=== PATIENT | female | born 1935 | race Caucasian/White ===

== ENCOUNTER 2018-12-08 17:14 | Inpatient (IN) | payer MEDICARE, BC ==
[2018-12-08 17:58] LABS: Clarity Clear (Clear)
[2018-12-08 17:59] LABS: Leukocyte Small (Negative); Nitrite Negative (Negative)
[2018-12-08 18:00] LABS: Bilirubin Negative (Negative); Blood, Urine Trace (Negative); Glucose, Urine (Dipstick) Negative (Negative); Protein, Urine (Dipstick) > or equal to 300 mg/dL (Neg-Trace); Urobilinogen 0.2 mg/dL (0.2-1.0)
[2018-12-08 18:03] LABS: #Basophils 0.1 thou/uL (0.0-0.2); #Eosinphils 0.2 thou/uL (0.0-0.7); #Lymphocytes 2.2 thou/uL (1.20-3.40); #Monocytes 0.8 thou/uL (0.11-0.59); #Neutrophils 9.7 thou/uL (1.40-6.50); %Basophils 0.8 % (0.0-1.0); %Eosinophils 1.2 % (0.0-10.0); %Lymphocytes 17.1 % (21.0-51.0); %Monocytes 6.2 % (0.0-10.0); %Neutrophils 74.7 % (42.0-75.0); Hemoglobin 11.2 g/dL (12.0-16.0); Mean Corpuscular HGB CONC 32.3 g/dL (32.0-36.0); Mean Corpuscular Hemoglobin 28.9 pg (27.0-31.0); Mean Corpuscular Volume 89.3 fL (78.0-98.0); Mean Platelet Volume 6.7 fL (7.4-10.4); Platelet Count 504 thou/uL (130-400); RBC Distribution Width 15.4 % (11.5-14.5); Red Blood Cell (RBC) Count 3.88 mill/uL (4.20-5.40)
[2018-12-08 18:07] LABS: Bacteria/HPF 1+ HPF (None Seen); Crystals/HPF None Seen HPF (Negative); Hyaline Casts/LPF NONE SEEN LPF (0-3 Hyaline); Oval Fat Bodies/HPF None Seen HPF (None Seen); RBC/HPF 0-3 HPF (0-3); Renal Epithelial None Seen HPF (0-3); Sperm/HPF None Seen HPF (None Seen); Squamous Epithelial None Seen HPF (0-3); Transitional Epithelial NONE SEEN HPF (0-3); Trichomonas/HPF None Seen HPF (None Seen); WBC/HPF 21-50 HPF (0-3); Yeast-All Forms None Seen HPF (None Seen)
[2018-12-08 18:08] LABS: Other Casts/LPF 7-10 FINELY GRAN LPF (0-3 Hyaline)
[2018-12-08 18:14] LABS: ALT (SGPT) 12 U/L (8-55); AST (SGOT) 11 U/L (5-34); Albumin 4.5 g/dL (3.4-4.8); Alkaline Phosphatase 51 U/L (40-150); Anion Gap 18 mmol/L (10-20); BUN (Urea Nitrogen) 20 mg/dL (9.8-20.1); Bilirubin, Total 0.4 mg/dL (0.2-1.2); CK (CPK) 49 U/L (29-168); Calc. Creatinine Clearance 0 mL/min (70-130); Carbon Dioxide 25 mmol/L (23-31); Chloride 101 mmol/L (98-107); Estimated GFR-MDRD 22; Globulin 2.7 g/dL (2.4-3.5); Glucose 140 mg/dL (83-110); Potassium 4.6 mmol/L (3.5-5.1); Protein, Total 7.2 g/dL (6.0-8.3); Sodium 139 mmol/L (136-145)
[2018-12-08] MEDS ORDERED: cefTRIAXone\\ROCEPHIN 2 GM VIAL ONE (18:26)
[2018-12-08] MEDS ORDERED: Sodium Chloride 0.9% 100 ML ONE (18:26)
[2018-12-08 20:15] VITALS: BMI 18.5
[2018-12-08] MEDS ORDERED: Ondansetron PF 4 MG/2 ML Vial IVP PRN (20:39)
[2018-12-08] MEDS ORDERED: Ondansetron ODT 4 MG TAB SL PRN (20:39)
[2018-12-08] MEDS ORDERED: Acetaminophen 325 MG TAB PO PRN (20:39)
[2018-12-08] MEDS: Sodium Chloride 0.9% 1,000 ML IV SCH (20:55)
[2018-12-08 23:43] LABS: Lactic Acid 2.4 mmol/L (0.5-2.2)
[2018-12-09] MEDS: Sodium Chloride 0.9% 1,000 ML IV SCH ×2 (00:29→08:37)
[2018-12-09 04:46] LABS: ALT (SGPT) 9 U/L (8-55); AST (SGOT) 10 U/L (5-34); Albumin 3.6 g/dL (3.4-4.8); Alkaline Phosphatase 41 U/L (40-150); Anion Gap 14 mmol/L (10-20); BUN (Urea Nitrogen) 17 mg/dL (9.8-20.1); Bilirubin, Total 0.2 mg/dL (0.2-1.2); Calc. Creatinine Clearance 19 mL/min (70-130); Calcium 8.6 mg/dL (7.8-10.44); Carbon Dioxide 20 mmol/L (23-31); Chloride 110 mmol/L (98-107); Estimated GFR-MDRD 29; Globulin 2.1 g/dL (2.4-3.5); Glucose 95 mg/dL (83-110); Potassium 4.3 mmol/L (3.5-5.1); Protein, Total 5.7 g/dL (6.0-8.3); Sodium 140 mmol/L (136-145)
[2018-12-09 05:15] LABS: Anisocytosis SLIGHT = 6-15 cells (100X) (0-5/hpf); Band 3 % (5-11); Hemoglobin 9.6 g/dL (12.0-16.0); Lymphocytes 12 % (21-51); MDiff Complete? YES; Mean Corpuscular HGB CONC 33.7 g/dL (32.0-36.0); Mean Corpuscular Hemoglobin 29.7 pg (27.0-31.0); Mean Corpuscular Volume 88.2 fL (78.0-98.0); Mean Platelet Volume 8.3 fL (7.4-10.4); Monocytes 7 % (0-10); Neutrophil 77 % (42-75); Ovalocytes SLIGHT = 2-5 cells (100X) (0-1/hpf); Platelet Count 410 thou/uL (130-400); Platelet Morphology Comment Appears Increased; RBC Distribution Width 15.1 % (11.5-14.5); Red Blood Cell (RBC) Count 3.23 mill/uL (4.20-5.40); Toxic Granulation SLIGHT
[2018-12-09] MEDS: Rosuvastatin 10 MG TAB PO SCH (08:44)
[2018-12-09] MEDS: Lisinopril 10 MG TAB PO SCH (08:45)
[2018-12-09] MEDS: Amlodipine 5 MG TAB PO SCH (08:45)
[2018-12-09] MEDS: Aspirin 81 mg Enteric Coated Tablet PO SCH (08:45)
[2018-12-09] MEDS ORDERED: Alogliptin 6.25 MG TAB PO SCH (09:00)
[2018-12-09] MEDS ORDERED: Glimepiride 2 MG TAB PO SCH (11:00)
[2018-12-09] MEDS: cefTRIAXone\\ROCEPHIN 2 GM in Sodium Chloride 0.9% 100 ML IVPB SCH (17:16)
[2018-12-09] MEDS ORDERED: Dextrose 5% in Water 1,000 ML IV PRN (17:34)
[2018-12-09] MEDS ORDERED: HumaLOG 300 UNITS/3 ML VIAL SC PRN (17:34)
[2018-12-09] MEDS ORDERED: Dextrose 50% Abboject 50 ML SYRINGE SLOW IVP PRN (17:34)
--- NOTE | 2018-12-09 18:34 | RAD ---
CHEST TWO VIEWS: 12/09/18 The heart is normal in size and the lungs are clear. There is no sign of pneumonia or other cause for infection or increased white count. No effusions are seen. IMPRESSION: No acute finding. POS: HOME
[2018-12-09] MEDS: HumaLOG 300 UNITS/3 ML VIAL SC PRN (19:11)
[2018-12-09] MEDS ORDERED: Vancomycin HCl 1 GM in Sodium Chloride 0.9% 250 ML 250 ML IVPB SCH (20:00)
[2018-12-09 20:26] LABS: Vancomycin, Random 9.4 ug/mL (See Comment)
[2018-12-09] MEDS ORDERED: Vancomycin HCl 750 MG in Sodium Chloride 0.9% 250 ML 250 ML IVPB SCH (22:00)
--- NOTE | 2018-12-09 22:17 | CT ---
CT ABDOMEN AND PELVIS WITHOUT CONTRAST: 12/09/[address] of the abdomen and pelvis was performed for evaluation of an increased white count. Axial s lices were acquired, then coronal and sagittal reconstructions were done. A fair amount of the lower chest was shown on this study and the lungs are clear. There is no infiltr ate or effusions present. The liver, spleen, pancreas and abdominal aorta showed no acute findings wi thin the limitations of a noncontrast scan. There is abundant arteriosclerotic change in the aorta. M ultiple gallstones are seen in the gallbladder, ; however, there does not appear to be wall thickeni ng or inflammatory change around it. There has been a prior left nephrectomy. Right kidney shows no h ydronephrosis. A 2 cm predominantly fat filled mass is seen in the upper pole of the right kidney. 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 There is a small amount of perine phric streaking around the lower pole, but this is a nonspecific finding can often be seen in patient 's with prior pyelonephritis. The kidney itself does not appear edematous. The bowel shows no distention, wall thickening, or kristina-intestinal inflammatory change. No mesenteric adenopathy was seen. A minimal fat filled periumbilical hernia is noted, of no consequence. CT of th e pelvis showed no pelvic masses, fluid collections, or inflammatory changes. No masses were seen. Degenerative changes are seen in the spine, though they are not excessive. Degenerated discs are evid ent at L2-L3 and L4-L5. IMPRESSION: 1. No evidence of intra-abdominal or pelvic abscess or other fluid collections to explain the pa sukhwinder's increased white count. 2. Minimal right perinephric streaking which is a fairly nonspecific finding and is not necessar alayna indicative of current infection. 3. Gallstones but no pericholecystic inflammatory change seen. 4. 2 cm fat filled mass upper pole right kidney. Almost certainly a benign angiomyolipoma. Furth er workup is probably not indicated. POS: HOME
--- NOTE | 2018-12-10 01:25 | HP ---
PRIMARY CARE PHYSICIAN: [facility] in [place], [place]. CHIEF COMPLAINT: Abnormal kidney function and possible UTI. HISTORY OF PRESENT ILLNESS: Ms. Gallegos is an 83-year-old female with diabetes mellitus, hypertension, hyperlipidemia, and history of left renal cell carcinoma, status post nephrectomy, presented to emergency room on 2018 due to abnormal kidney function and possible UTI. Her condition started after her nephrectomy on October [address] Osvaldo Ryan. She has been experiencing intermittent nausea, vomiting, with loss of appetite and generally not feeling well. She recently transferred care to [facility] in [place] after patient's PCP closed their practice in [place]. She was advised to go to the hospital for possible UTI and worsening kidney function. She denies any pain on presentation. Her vital signs at ED showed BP of 147/80, pulse 91, RR of 16, temperature of 97.6, O2 sat was 99% Her labs showed WBC of 13, hemoglobin of 11.2, hematocrit of 34.7, platelets counts of 504. Comprehensive metabolic panel showed sodium of 139, potassium of 4.6, creatinine of 2.11, BUN of 20, glucose of 140. Her urine showed proteinuria of more than 300 mg/dL with small leukocyte esterase, wbc of 21 to 50 with +1 bacteria. Lactic acid was elevated at 3.4. We do not have a baseline labs for comparison. Due to her abnormal kidney function and elevated white count with abnormal urinalysis, the patient was admitted for UTI with sepsis. She was started on vancomycin and Rocephin. This afternoon, she denies any major complaints except for frequent urination. Her appetite is the same. She is able to ambulate to go to the bathroom. Vital signs and Accu-Cheks are within normal limits. PAST MEDICAL HISTORY: 1. Diabetes mellitus. 2. Hypertension. 3. Hyperlipidemia. 4. History of left renal cell carcinoma. PAST SURGICAL HISTORY: 1. Bilateral cataract surgery. 2. Left nephrectomy. PERSONAL SOCIAL HISTORY: The patient lives with . Has a daughter and son; both live in [facility]. ALLERGIES: CIPRO AND JANUVIA. MEDICATIONS: 1. Crestor 40 mg one tablet daily. 2. Metformin 500 mg two tablets b.i.d. 3. Amlodipine 5 mg once a day. 4. Lisinopril 10 mg daily. 5. Glimepiride 2 mg daily. 6. Aspirin 81 mg daily. FAMILY HISTORY: Father of heart disease with complications. Mother had diabetes and at 65 years old due to complications. REVIEW OF SYSTEMS: GENERAL: Positive for fatigue. Positive for decreased appetite. Positive for weight loss of 10 pounds. EYES: Positive for blurred vision. Negative for eye pain. EARS, NOSE, THROAT: No sore throat. No nasal congestion. CARDIOVASCULAR: Negative for chest pain. Negative for palpitation. Negative for edema. PULMONARY: Negative for shortness of breath. Negative for wheezing. Negative for tobacco exposure. GASTROINTESTINAL: Positive for nausea and vomiting. Negative for constipation or diarrhea. Positive for loss of appetite. MUSCULOSKELETAL: Negative for joint pains or swelling. PSYCHIATRIC: Negative for anxiety, depression. LYMPHATICS: No swollen lymph nodes or bruising. PHYSICAL EXAMINATION: VITAL SIGNS: Blood pressure of 135/69, temperature of 98.2, pulse of 69, respiratory rate of 16, O2 saturation 95% on room air. GENERAL: The patient is alert, oriented, not in respiratory distress. HEENT: Normocephalic and atraumatic. Pupils are equally reactive to light. NECK: Supple. Negative for lymphadenopathy. Negative for JVD. CHEST AND LUNGS: Symmetrical expansion. Clear to auscultation bilaterally. HEART: Regular rate and rhythm. Negative for murmur, rubs, or gallops. ABDOMEN: Slightly distended. Normoactive bowel sounds. Positive for mild tenderness along incision site from nephrectomy. No rebound tenderness. No CVA tenderness. PSYCHIATRIC: Appropriate affect and demeanor. EXTREMITIES: No edema. No cyanosis. LABORATORY DATA: CBC; WBC of 17, hemoglobin of 9.6, hematocrit of 28.5, and platelet count of 410, neutrophils of 77, bands of 3, lymphocytes of 12. Lactic acid of 2.4. Blood culture x2 both negative. Urine culture, no growth after 12 hours. ASSESSMENT: 1. Urinary tract infection with leukocytosis and elevated lactic acid. 2. Acute renal insufficiency. 3. History of left renal cell carcinoma, status post nephrectomy. 4. Hypertension. 5. Hyperlipidemia. 6. Diabetes mellitus. PLAN: 1. Continue present treatment for UTI with sepsis. 2. Order chest x-ray. If normal, we will obtain CT of the abdomen and pelvis. 3. Repeat labs in a.m. 4. Discontinue home meds that will compromise renal function. 5. Continue gentle hydration. 6. Deep venous thrombosis prophylaxis with SCDs. 7. Full Code Job ID: [id number] MTDD
[2018-12-10] MEDS: Sodium Chloride 0.9% 1,000 ML IV SCH (01:27)
[2018-12-10 05:02] LABS: Anion Gap 13 mmol/L (10-20); BUN (Urea Nitrogen) 15 mg/dL (9.8-20.1); Calc. Creatinine Clearance 20 mL/min (70-130); Calcium 8.5 mg/dL (7.8-10.44); Chloride 114 mmol/L (98-107); Estimated GFR-MDRD 30; Glucose 84 mg/dL (83-110); Potassium 4.1 mmol/L (3.5-5.1); Sodium 141 mmol/L (136-145)
[2018-12-10 05:13] LABS: #Basophils 0.1 thou/uL (0.0-0.2); #Eosinphils 0.3 thou/uL (0.0-0.7); #Lymphocytes 1.8 thou/uL (1.20-3.40); #Neutrophils 11.2 thou/uL (1.40-6.50); %Basophils 0.8 % (0.0-1.0); %Eosinophils 2.2 % (0.0-10.0); %Lymphocytes 12.3 % (21.0-51.0); %Monocytes 6.6 % (0.0-10.0); %Neutrophils 78.2 % (42.0-75.0); Hemoglobin 9.5 g/dL (12.0-16.0); Mean Corpuscular HGB CONC 32.8 g/dL (32.0-36.0); Mean Corpuscular Hemoglobin 29.2 pg (27.0-31.0); Mean Corpuscular Volume 88.9 fL (78.0-98.0); Platelet Count 366 thou/uL (130-400); RBC Distribution Width 15.5 % (11.5-14.5); Red Blood Cell (RBC) Count 3.26 mill/uL (4.20-5.40); White Blood Cell (WBC) Count 14.4 thou/uL (4.8-10.8)
[2018-12-10 05:16] LABS: Carbon Dioxide 18 mmol/L (23-31)
[2018-12-10] MEDS ORDERED: Glimepiride 2 MG TAB PO SCH (08:00)
[2018-12-10] MEDS: Amlodipine 5 MG TAB PO SCH (08:48)
[2018-12-10] MEDS: Rosuvastatin 10 MG TAB PO SCH (08:48)
[2018-12-10] MEDS: Aspirin 81 mg Enteric Coated Tablet PO SCH (08:49)
[2018-12-10] MEDS: Lisinopril 10 MG TAB PO SCH (08:49)
[2018-12-10] MEDS: AMARYL PO SCH (08:53)
[2018-12-10] MEDS: HumaLOG 300 UNITS/3 ML VIAL SC PRN ×2 (12:26→17:56)
[2018-12-10] MEDS: cefTRIAXone\\ROCEPHIN 2 GM in Sodium Chloride 0.9% 100 ML IVPB SCH (17:08)
[2018-12-10 21:36] LABS: Vancomycin, Random 14.1 ug/mL (See Comment)
[2018-12-10] MEDS ORDERED: VANCOMYCIN IVPB PRN (21:43)
[2018-12-10] MEDS ORDERED: Vancomycin HCl 500 MG in Sodium Chloride 0.9% 100 ML IVPB SCH (22:00)
[2018-12-11 06:04] VITALS: BP 120/72; TEMP 98
[2018-12-11 06:28] LABS: Anion Gap 13 mmol/L (10-20); BUN (Urea Nitrogen) 15 mg/dL (9.8-20.1); Calc. Creatinine Clearance 18 mL/min (70-130); Carbon Dioxide 20 mmol/L (23-31); Chloride 114 mmol/L (98-107); Estimated GFR-MDRD 27; Glucose 98 mg/dL (83-110); Potassium 4.1 mmol/L (3.5-5.1); Sodium 143 mmol/L (136-145)
[2018-12-11 06:33] LABS: #Basophils 0.1 thou/uL (0.0-0.2); #Eosinphils 0.4 thou/uL (0.0-0.7); #Lymphocytes 2.1 thou/uL (1.20-3.40); #Neutrophils 10.8 thou/uL (1.40-6.50); %Basophils 0.7 % (0.0-1.0); %Eosinophils 2.5 % (0.0-10.0); %Lymphocytes 14.4 % (21.0-51.0); %Monocytes 6.8 % (0.0-10.0); %Neutrophils 75.5 % (42.0-75.0); Hemoglobin 9.6 g/dL (12.0-16.0); Mean Corpuscular HGB CONC 33.3 g/dL (32.0-36.0); Mean Corpuscular Hemoglobin 29.1 pg (27.0-31.0); Mean Corpuscular Volume 87.4 fL (78.0-98.0); Mean Platelet Volume 7.9 fL (7.4-10.4); Platelet Count 370 thou/uL (130-400); Red Blood Cell (RBC) Count 3.28 mill/uL (4.20-5.40); White Blood Cell (WBC) Count 14.3 thou/uL (4.8-10.8)
[2018-12-11] MEDS: Rosuvastatin 10 MG TAB PO SCH (08:50)
[2018-12-11] MEDS: Amlodipine 5 MG TAB PO SCH (08:51)
[2018-12-11] MEDS: Aspirin 81 mg Enteric Coated Tablet PO SCH (08:51)
[2018-12-11] MEDS: Lisinopril 10 MG TAB PO SCH (08:51)
[2018-12-11] MEDS: AMARYL PO SCH (08:55)
--- NOTE | 2018-12-11 09:24 | PRG ---
DATE OF SERVICE: 12/10/2018 SUBJECTIVE: The patient is doing well. She denies any nausea, vomiting, or abdominal pain. She felt good this morning. She denies fever. She has improved appetite. OBJECTIVE: VITAL SIGNS: Blood pressure of 149/75, pulse of 89, temperature of 98.4, O2 saturation 98% on room air, and respiratory rate of 20. GENERAL: The patient is alert, oriented, not in respiratory distress. Afebrile. HEENT: Normocephalic and atraumatic. Pupils are equal and reactive to light. NECK: Supple. Negative for lymphadenopathy. CHEST AND LUNGS: Symmetrical expansion. Clear to auscultation bilaterally. HEART: Regular rate and rhythm. Negative for murmur. ABDOMEN: Flat, soft, nontender. Normoactive bowel sounds. BACK: Negative for midline or paraspinal tenderness. Negative for deformity. EXTREMITIES: Negative for cyanosis or clubbing. Good range of motion. SKIN: No rashes. No lesion. IMAGING STUDIES: Chest x-ray on 12/09/2018 showed no acute findings. Abdomen and pelvis CT scan showed clear lungs. No infiltrate or effusion. Liver, spleen, pancreas, and abdominal aorta showed no acute findings. Presence of abundant arteriosclerotic change in the aorta. Multiple gallstones in the gallbladder without wall thickening or inflammatory change. Positive for left nephrectomy. Right kidney shows no hydronephrosis. 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 There is a small amount of perinephric streaking around the lower pole, but this is nonspecific finding, seen in prior pyelonephritis. LABORATORY DATA: CBC; hemoglobin of 9.5, hematocrit of 29, WBC of 14.4, and platelet count of 366. Sodium of 141, potassium of 4, chloride of 114, carbon dioxide of 18, BUN of 15, creatinine of 1.65. GFR of 30. Urine culture showed no growth. Blood cultures x2 negative. ASSESSMENT: 1. Chronic nausea, post left nephrectomy. 2. Leukocytosis with negative urine and blood cultures. 3. Renal insufficiency, unknown baseline kidney function. 4. Cholelithiasis. 5. Diabetes mellitus. 6. Hypertension. 7. Hyperlipidemia. PLAN: 1. The patient is asymptomatic with stable vital signs, afebrile, with mild elevation in her WBC, her cultures were all negative, the patient is requesting to go home. 2. We will order morning labs. If her numbers continue to remain stable, we will discharge her. 3. We will need close followup and monitor her kidney function. She will need a referral with a portable power tool repairer. 4. Obtain previous medical records, daughter will try to obtain from a provider in [place], [place]. Job ID: [id number]
== END 2018-12-11 13:40 | disposition home or self-care (01) | DRG 700 ==
LOC: BURERS 17:14 → BURMED 20:03
PROVIDERS: ADMIT Family Medicine; ATTEND Family Medicine
DX: N28.9 Disorder of kidney and ureter, unspecified (principal); R11.0 Nausea; E11.9 Type 2 diabetes mellitus without complications; I10 Essential (primary) hypertension; E78.5 Hyperlipidemia, unspecified; D72.829 Elevated white blood cell count, unspecified; K80.20 Calculus of gallbladder without cholecystitis without obstruction; Z85.528 Personal history of other malignant neoplasm of kidney; Z90.5 Acquired absence of kidney; Z98.41 Cataract extraction status, right eye; Z98.42 Cataract extraction status, left eye; Z88.1 Allergy status to other antibiotic agents; Z88.8 Allergy status to other drugs, medicaments and biological substances; Z79.84 Long term (current) use of oral hypoglycemic drugs; Z79.82 Long term (current) use of aspirin; Z79.899 Other long term (current) drug therapy
CPT/HCPCS: 36415; 36416; 71046; 74176; 80048; 80053; 80202; 81003; 81015; 82550; 83605; 85025; 87040; 87086; 96361; 96365; 96367; J0696; J3370; J7050